=== PATIENT | female | born 1980 | race Two or more races ===

== ENCOUNTER 2021-04-09 06:58 | Day surgery (SDC) | payer BC ==
[~2021-04-09 06:58] MED LIST: AVIANE-28 TABL1 EACH PO; IRON PO; LEVOTHYROXINE75 MC1 PO
== END 2021-04-09 16:10 | disposition home or self-care (01) ==
LOC: CIR.AMB 06:58
PROVIDERS: ATTEND Obstetrics & Gynecology Gynecologic Oncology
DX: N70.11 Chronic salpingitis (principal); Z20.822 Contact with and (suspected) exposure to COVID-19

== ENCOUNTER 2022-11-06 17:41 | Emergency (ER) | payer BC ==
[~2022-11-06] VITALS: Ht 162.6 cm; Wt 83.9 kg
== END 2022-11-06 20:41 | disposition home or self-care (01) ==
LOC: ER 17:41
DX: N93.9 Abnormal uterine and vaginal bleeding, unspecified (principal); D64.9 Anemia, unspecified; D50.9 Iron deficiency anemia, unspecified; E03.9 Hypothyroidism, unspecified

== ENCOUNTER 2023-03-09 22:45 | Emergency (ER) | payer BC ==
[~2023-03-09] VITALS: Ht 162.6 cm; Wt 84.8 kg
[2023-03-10] MEDS ORDERED: KETO10TA2 PO (03:24)
== END 2023-03-10 03:58 ==
LOC: ER 22:45
DX: S59.802A Other specified injuries of left elbow, initial encounter (principal); W18.39XA Other fall on same level, initial encounter; Y93.F1 Activity, caregiving, bathing; Y92.012 Bathroom of single-family (private) house as the place of occurrence of the external cause

== ENCOUNTER 2025-03-18 12:47 | Emergency (ER) | payer OTHER ==
[~2025-03-18] VITALS: Ht 162.6 cm; Wt 80.3 kg
[~2025-03-18 12:47] MED LIST changes: +KETO10TA2 PO
[2025-03-18] MEDS ORDERED: ORPHENADRINE CITRATE 30 MG/ML AMPUL IM ONE (13:15)
[2025-03-18] MEDS ORDERED: KETOROLAC TROMETHAMINE 60 MG VIAL IM ONE (13:15)
[2025-03-18 13:51] LABS: BASO % 0.8 % (0.1-1.2); EOS # 0.05 (0.04-0.54); EOS % 0.7 % (0.7-7.0); LYMPH # 1.65 (1.18-3.74); LYMPH % 21.6 % (19.3-53.1); MEAN PLATELET VOLUME 12.20 fl (9.4-12.4); MONO # 0.50 (0.24-0.82); MONO % 6.6 % (4.7-12.5); NEUT # 5.36 (1.56-6.13); NEUT % 70.2 % (34.0-71.1); RED CELL DISTRIBUTION WIDTH 12.6 % (11.6-14.4)
[2025-03-18] MEDS ORDERED: NORFLEX100MG PO (15:15)
== END 2025-03-18 16:01 | disposition home or self-care (01) ==
LOC: ER 12:47
PROVIDERS: General Practice
DX: G89.11 Acute pain due to trauma (principal); R51.9 Headache, unspecified; M54.2 Cervicalgia; M79.602 Pain in left arm; E03.8 Other specified hypothyroidism